=== PATIENT | male | born 1990 | race Caucasian/White ===

== ENCOUNTER 2023-05-25 02:25 | Emergency (ER) | payer BC ==
[~2023-05-25] VITALS: Ht 182.9 cm; Wt 79.1 kg
[2023-05-25 02:33] VITALS: TEMP 98.2
[2023-05-25] MEDS ORDERED: VISTARIL 2525 MG/CAP PO (03:33)
[2023-05-25] MEDS ORDERED: ZOFRAN ODT4 MG PO (03:33)
[2023-05-25] MEDS ORDERED: ZOLOFT 50MG50 MG PO (03:33)
[2023-05-25 04:58] VITALS: BP 118/71; PULSE 80
== END 2023-05-25 04:58 | disposition home or self-care (01) ==
LOC: COL.ER 02:25
DX: F41.9 Anxiety disorder, unspecified (principal); R00.0 Tachycardia, unspecified; R03.0 Elevated blood-pressure reading, without diagnosis of hypertension; R11.0 Nausea